=== PATIENT | female | born 1940 | race African-American/Black ===

== ENCOUNTER 2019-12-02 13:16 | Emergency (ER) | payer OTHER ==
[2019-12-02 13:44] VITALS: BMI 25.6
[2019-12-02 16:18] LABS: BASO % 0.4 % (0-2.0); EOS % 0.2 % (0-4.5); HEMATOCRIT 44.4 % (32.4-45.2); HEMOGLOBIN 14.7 GM/dL (10.7-15.3); LYMPH % 14.2 % (8-40); MCH 30.8 pg (25.7-33.7); MCHC 33.2 g/dl (32.0-36.0); MEAN CELL VOLUME 92.8 fl (80-96); MEAN PLT VOLUME 8.2 fl (7.5-11.1); MONO % 7.4 % (3.8-10.2); NEUT % 77.8 % (42.8-82.8); PLATELET COUNT 275 K/MM3 (134-434); RBC 4.79 M/mm3 (3.60-5.2); RDW 13.4 % (11.6-15.6); WHITE BLOOD COUNT 15.4 K/mm3 (4.0-10.0)
[2019-12-02 16:25] LABS: EPI CELLS 9 /uL (0-25.1); HYALINE CASTS 2 /uL (0-3.1); PH,URINE 5.5 (5.0-8.0); URINE APPEARANCE CLEAR; URINE BACTERIA 8 /uL (0-1359); URINE BILIRUBIN NEGATIVE (NEGATIVE); URINE COLOR YELLOW; URINE GLUCOSE (UA) NEGATIVE (NEGATIVE); URINE KETONE TRACE (NEGATIVE); URINE LEUK ESTERASE NEGATIVE (NEGATIVE); URINE NITRITE NEGATIVE (NEGATIVE); URINE PROTEIN 1+ (NEGATIVE); URINE RBC 42 /uL (0-23.9); URINE UROBILINOGEN 0.2 mg/dL (0.2-1.0); URINE WBC 16 /uL (0-25.8)
--- NOTE | 2019-12-02 16:25 | PDOC ---
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 Timing/Duration: intermittent Severity: mild Associated Symptoms: reports: other (abd pain) Past History - Travel Traveled outside of the country in the last 30 days: No Close contact w/someone who was outside of country & ill: No - Past Medical History Allergies/Adverse Reactions: Allergies Allergy/AdvReac Type Severity Reaction Status Date / Time No Known Allergies Allergy Verified 12/02/19 13:44 COPD: No HTN: No - Psycho Social/Smoking Cessation Hx Smoking History: Never smoked Patient Lives Alone: No Lives with/in: Home health aide Review of Systems - Review of Systems Able to Perform ROS?: No Is the patient limited Bulgarian proficient: No Constitutional: No: Symptoms Reported HEENTM: No: Symptoms Reported Respiratory: No: Symptoms reported Cardiac (ROS): No: Symptoms Reported ABD/GI: Yes: Abdominal cramping : No: Symptoms Reported Musculoskeletal: No: Symptoms Reported Integumentary: No: Symptoms Reported Neurological: No: Symptoms reported *Physical Exam - Vital Signs Last Vital Signs Temp Pulse Resp BP Pulse Ox 98.2 F 75 18 135/90 100 12/02/19 13:33 12/02/19 13:33 12/02/19 13:33 12/02/19 13:33 12/02/19 13:33 - Physical Exam General Appearance: Yes: Nourished, Appropriately Dressed. No: Apparent Distress HEENT: positive: EOMI, JENNIFER, TMs Normal, Pharynx Normal. negative: Pale Conjunctivae Respiratory/Chest: positive: Lungs Clear, Normal Breath Sounds. negative: Respiratory Distress, Accessory Muscle Use Gastrointestinal/Abdominal: positive: Soft, Tenderness (Mild epigastric) Extremity: positive: Normal Inspection Integumentary: positive: Normal Color, Warm, Moist Neurologic: positive: Motor Strength 5/5 (Ambulatory) ED Treatment Course - LABORATORY CBC & Chemistry Diagram: 12/02/19 15:56 12/02/19 15:45 Medical Decision Making - Medical Decision Making 12/02/19 16:26 Chief complaint: Intermittent upper abdominal pain for the past 2 weeks no other complaints no change in appetite no change in urine or bowel pattern. Patient history of dementia and not a great historian home health aide at bedside exam: Patient mild epigastric tenderness otherwise vital signs stable no other findings. Plan: Labs, urine, EKG 12/02/19 17:19 Chest x-ray negative for acute pathology. Patient very active and trying to leave. Patient has no complaints presently. No tenderness to the epigastric area. Explained to daughter patient may need to follow-up with GI otherwise there is no acute findings except for mildly elevated white count and ketones in the urine. Urine culture sent 12/02/19 17:19 Discharge - Discharge Information Problems reviewed: Yes Clinical Impression/Diagnosis: Epigastric pain Condition: Good Disposition: HOME - Follow up/Referral Referrals: ON STAFF,NOT [Primary Care Provider] - Rachid Rivera MD [Staff Physician] - - Patient Discharge Instructions Patient Printed Discharge Instructions: DI for Epigastric Pain Additional Instructions: Please give patient plenty of fluids and have her eat frequent lady well- balanced meals. If symptoms continue may consider following up with a cleat layer as given on your discharge papers - Post Discharge Activity
[2019-12-02 16:44] LABS: ALBUMIN 3.8 g/dl (3.4-5.0); BILIRUBIN,TOTAL 0.5 mg/dL (0.2-1); BLOOD UREA NITROGEN 11.9 mg/dL (7-18); CALCIUM 9.3 mg/dL (8.5-10.1); CREATININE 0.8 mg/dL (0.55-1.3); MAGNESIUM 2.2 mg/dL (1.8-2.4); POTASSIUM 3.8 mmol/L (3.5-5.1); TOT PROT 8.5 g/dl (6.4-8.2)
[2019-12-02 17:41] VITALS: BP 146/71; PULSE 87; TEMP 98
== END 2019-12-02 18:04 | disposition home or self-care (01) ==
LOC: JER 13:16
DX: R10.13 Epigastric pain (principal)
CPT/HCPCS: 36415; 71045-TC-FY; 80053; 81003; 83690; 83735; 85025; 87086; 99284-25